=== PATIENT | male | born 1995 | race Caucasian/White ===

== ENCOUNTER 2017-03-28 23:59 | Observation (INO) | payer BC, OTHER ==
[~2017-03-28] VITALS: Ht 170.2 cm; Wt 62.3 kg
[~2017-03-28 23:59] MED LIST: AGM875T PO; ALBU8.5H4 IH; AMOX500C2 PO; CYCL10TA9 PO; NAPR500T PO; antibiotic
[2017-03-29] VITALS (12 sets, daily range): BP systolic 115–137; BP diastolic 59–80
[2017-03-29] MEDS ORDERED: LACTATED RINGERS 1,000 ML IV ONE (00:52)
[2017-03-29 01:20] LABS: BASOPHILS % (AUTO) 0 % (0-10); EOSINOPHILS # (AUTO) 0.1 10^3/uL (0.0-0.3); EOSINOPHILS % (AUTO) 1 % (0-10); LYMPHOCYTES # (AUTO) 1.7 X 10^3 (1.0-4.0); LYMPHOCYTES % (AUTO) 20 % (12-44); MEAN CORPUSCULAR HEMOGLOBIN 30 PG (25-34); MEAN CORPUSCULAR HGB CONC 34 G/DL (32-36); MEAN CORPUSCULAR VOLUME 89 FL (80-99); MONOCYTES # (AUTO) 0.8 X 10^3 (0.0-1.0); MONOCYTES % (AUTO) 9 % (0-12); NEUTROPHILS # (AUTO) 5.8 X 10^3 (1.8-7.8); NEUTROPHILS % (AUTO) 70 % (42-75); PLATELET COUNT 264 10^3/uL (130-400); RED BLOOD COUNT 4.71 10^6/uL (4.35-5.85); RED CELL DISTRIBUTION WIDTH 12.5 % (10.0-14.5); WHITE BLOOD COUNT 8.3 10^3/uL (4.3-11.0)
[2017-03-29] MEDS ORDERED: ONDANSETRON 4 MG/2 ML (SDV) Z0FRAN ONE (01:28)
[2017-03-29 01:39] LABS: ALANINE AMINOTRANSFERASE 27 U/L (0-55); ALBUMIN 4.3 G/DL (3.2-4.5); ALCOHOL < 10 MG/DL (<10); ANION GAP 10 MMOL/L (5-14); ASPARTATE AMINO TRANSFERASE 24 U/L (5-34); BILIRUBIN,TOTAL 0.4 MG/DL (0.1-1.0); BLOOD UREA NITROGEN 19 MG/DL (7-18); BUN/CREATININE RATIO 18; CALCIUM 9.1 MG/DL (8.5-10.1); CARBON DIOXIDE 26 MMOL/L (21-32); CHLORIDE 106 MMOL/L (98-107); CREATININE SERUM 1.06 MG/DL (0.60-1.30); GFR ESTIMATED > 60; GLUCOSE 99 MG/DL (70-105); MAGNESIUM 2.1 MG/DL (1.8-2.4); POTASSIUM 3.7 MMOL/L (3.6-5.0); SODIUM 142 MMOL/L (135-145); TOTAL PROTEIN 6.9 G/DL (6.4-8.2)
[2017-03-29] MEDS ORDERED: ONDANSETRON 4 MG/2 ML (SDV) Z0FRAN IVP ONE (02:00)
[2017-03-29] MEDS ORDERED: fentaNYL INJECTION 100 MCG/2 ML AMP IVP ONE (02:00)
[2017-03-29] MEDS ORDERED: PROMETHAZINE INJ 25 MG/ML (PHENERGAN) AMP ONE (02:08)
[2017-03-29] MEDS ORDERED: PROMETHAZINE INJ 25 MG/ML (PHENERGAN) AMP IVP ONE (02:15)
[2017-03-29 02:19] LABS: BILIRUBIN,URINE NEGATIVE (NEGATIVE); KETONES,URINE NEGATIVE (NEGATIVE); LEUKOCYTE ESTERASE ,URINE 1+ (NEGATIVE); NITRITE,URINE NEGATIVE (NEGATIVE); PH,URINE 6 (5-9); PROTEIN,URINE 2+ (NEGATIVE); UROBILINOGEN,URINE NORMAL (NORMAL)
[2017-03-29 02:27] LABS: SQUAMOUS EPITHELIAL CELL,UR RARE /HPF; WBC,URINE 0-2 /HPF
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
[2017-03-29] MEDS ORDERED: D5 1/2 NS W/KCL 20 MEQ/L 1,000 ML IV ONE (03:46)
[2017-03-29] MEDS ORDERED: PROMETHAZINE INJ 25 MG/ML (PHENERGAN) AMP IV PRN (05:00)
[2017-03-29] MEDS ORDERED: ONDANSETRON 4 MG/2 ML (SDV) Z0FRAN IV PRN (05:00)
[2017-03-29] MEDS ORDERED: KETOROLAC 30 MG/ML VIAL IV PRN (05:15)
[2017-03-29] MEDS ORDERED: CATHETER FLUSH 10 ML SYR IV PRN (05:15)
[2017-03-29] MEDS: CATHETER FLUSH 10 ML SYR IV SCH ×2 (06:50→13:49)
[2017-03-29] MEDS: D5 1/2 NS W/KCL 20 MEQ/L 1,000 ML IV SCH ×2 (06:51→13:47)
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
== END 2017-03-29 17:35 | disposition short-term general hospital (02) ==
LOC: EDUNIT# 23:59 → ER 03-29 00:01 → 4TH 03-29 02:22 → UNDOADMOB 03-29 02:22 → 4TH 03-29 03:00
PROVIDERS: ADMIT Surgery; ATTEND Surgery
DX: S06.6X0A Traumatic subarachnoid hemorrhage without loss of consciousness, initial encounter (principal); Y04.0XXA Assault by unarmed brawl or fight, initial encounter; Y92.29 Other specified public building as the place of occurrence of the external cause
CPT/HCPCS: 36415; 70450; 72125; 80053; 80306; 80320; 81000; 83735; 85025; 96361; 96374; 96375; G0378

== ENCOUNTER 2018-01-07 21:10 | Emergency (ER) | payer BC, OTHER ==
[~2018-01-07] VITALS: Ht 170.2 cm; Wt 60.8 kg
[~2018-01-07 21:10] MED LIST changes: +NAPR-1071 PO; -NAPR500T PO
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
--- OUTSIDE RECORDS SUMMARY | 2018-01-07 21:16 | XMS REPORT ---
Author [facility] Address [address] [place] [address] Care Team Providers Care Core Sticker Name Role Phone DAVIDSON BAILEY Unavailable PROBLEMS Type Condition ICD9-CM Code [id number] Code Onset Dates Condition Status SNOMED Code Problem Cannabis dependence F12.20 Active 13691008 ALLERGIES Unknown Allergies SOCIAL HISTORY No smoking Hx information available PLAN OF CARE Activity Details Follow Up 1 Week Reason: VITAL SIGNS MEDICATIONS Unknown Medications RESULTS No Results PROCEDURES Procedure Date Ordered Related Diagnosis Body Site Psychotherapy, patient &/family, 60 minutes, established patient Oct 18, 2016 IMMUNIZATIONS No Known Immunizations
--- OUTSIDE RECORDS SUMMARY | 2018-01-07 21:16 | XMS REPORT | Clinical Summary ---
Author Author [facility] Organization [facility] Address Unknown Phone Unavailable Care Team Providers Care Surgical Garment Inspector Name Role Phone Self, Referral PCP Unavailable Annie Rodrigez LENNOX Unavailable Source Comments Some departments are not documenting in the electronic medical record. If you do not see the information that you expected, contact Release of Information in the Health Information Management department at [phone] for further assistance in locating additional records.[facility] Allergies No Known Allergies Current Medications Prescription Sig. Disp. Refills Start End Date Status Date acyclovir (ZOVIRAX) 200 Take 200 mg by mouth five Active mg capsule times daily. azithromycin (ZITHROMAX) Take 4 Tabs by mouth 4 Tab 0 01/17/20 Active 500 mg tabletIndications: daily. 16 Penile lesion mupirocin (BACTROBAN) 2 % Apply to affected area 30 g 0 01/17/20 Active topical twice daily until healed. 16 ointmentIndications: Abscess of right leg Active Problems No known active problems Family History Medical History Relation Name Comments None Reported Father None Reported Mother Relation Name Status Comments Father Alive Mother Alive Social History Tobacco Use Types Packs/Day Years Used Date Current Every Day Smoker Tobacco Cessation: Ready to Quit: No; Counseling Given: Yes Sex Assigned at Date Recorded Not on file Last Filed Vital Signs Vital Sign Reading Time Taken Blood Pressure 120/85 01/17/2016 3:01 PM CDT Pulse 89 01/17/2016 3:01 PM CDT Temperature 36.6 C (97.9 F) 01/17/2016 3:01 PM CDT Respiratory Rate 16 01/17/2016 3:01 PM CDT Oxygen Saturation - - Inhaled Oxygen - - Concentration Weight 56.7 kg (125 lb) 01/17/2016 3:01 PM CDT Height 168.9 cm (5' 6.5") 01/17/2016 3:01 PM CDT Body Mass Index 19.87 01/17/2016 3:01 PM CDT Plan of Treatment Health Maintenance Due Date Last Done Comments PHYSICAL (COMPREHENSIVE) 2001 EXAM PERTUSSIS VACCINE 2005 TETANUS VACCINE 2011 INFLUENZA VACCINE 07/21/2018 HIV SCREENING Completed 01/17/2016 Results Not on filefrom Last 3 Months
--- OUTSIDE RECORDS SUMMARY | 2018-01-07 21:16 | XMS REPORT ---
Author Author DAVIDSON BAILEY [facility] Address [address] [place] [address] Care Team Providers Care Bag Adjuster Name Role Phone DAVIDSON BAILEY Unavailable PROBLEMS Type Condition ICD9-CM Code FBC12-EH Code Onset Dates Condition Status SNOMED Code Problem Cannabis dependence F12.20 Active [id number] ALLERGIES No Information SOCIAL HISTORY Never Assessed PLAN OF CARE Activity Details Follow Up 2 - 3 Days Reason: VITAL SIGNS MEDICATIONS Unknown Medications RESULTS No Results PROCEDURES Procedure Date Ordered Result Body Site Psychotherapy, patient &/family, 30 minutes, established patient Oct 17, 2016 IMMUNIZATIONS No Known Immunizations
--- OUTSIDE RECORDS SUMMARY | 2018-01-07 21:16 | XMS REPORT ---
Author Author DAVIDSON BAILEY [facility] Address [address] [place] [address] Care Team Providers Care Bone Drier Name Role Phone DAVIDSON BAILEY Unavailable PROBLEMS Type Condition ICD9-CM Code HCL34-JE Code Onset Dates Condition Status SNOMED Code Problem Cannabis dependence F12.20 Active [id number] ALLERGIES No Information SOCIAL HISTORY Never Assessed PLAN OF CARE Activity Details Follow Up Client was not rescheduled. File will remain open for 30 days Reason : VITAL SIGNS MEDICATIONS Unknown Medications RESULTS No Results PROCEDURES Procedure Date Ordered Result Body Site Psychotherapy, patient &/family, 30 minutes, established patient February 27, 2017 IMMUNIZATIONS No Known Immunizations
--- OUTSIDE RECORDS SUMMARY | 2018-01-07 21:16 | XMS REPORT ---
Author [facility] Address [address] [place] [address] Care Team Providers Care Data Entry Email Processor Name Role Phone DAVIDSON BAILEY Unavailable PROBLEMS Type Condition ICD9-CM Code FYU09-CA Code Onset Dates Condition Status SNOMED Code Problem Cannabis dependence F12.20 Active [id number] ALLERGIES No Information SOCIAL HISTORY Never Assessed PLAN OF CARE Activity Details Follow Up 5 days Reason: VITAL SIGNS MEDICATIONS Unknown Medications RESULTS No Results PROCEDURES Procedure Date Ordered Result Body Site Psychotherapy, patient &/family, 30 minutes, established patient February 22, 2017 IMMUNIZATIONS No Known Immunizations
[2018-01-07 21:22] LABS: BILIRUBIN,URINE NEGATIVE (NEGATIVE); CLARITY,URINE CLEAR; COLOR,URINE YELLOW; GLUCOSE, URINE (UA) NEGATIVE (NEGATIVE); KETONES,URINE NEGATIVE (NEGATIVE); LEUKOCYTE ESTERASE ,URINE 2+ (NEGATIVE); NITRITE,URINE NEGATIVE (NEGATIVE); PH,URINE 6 (5-9); PROTEIN,URINE NEGATIVE (NEGATIVE); UROBILINOGEN,URINE NORMAL (NORMAL)
--- NOTE | 2018-01-07 21:25 | ED Abdominal Pain ---
General Chief Complaint: Abdominal/GI Problems Stated Complaint: POSS KIDNEY STONE Source of Information: Patient Exam Limitations: No Limitations History of Present Illness Date Seen by Provider: Jan 07, 2018 Time Seen by Provider: 21:22 Initial Comments To ER per private vehicle with reports of left flank pain. The pain was noticed first yesterday morning about 6:30 AM. The pain has been intermittent and quite intense at times. He was seen at urgent care yesterday with urinalysis done and lab work. He was given an antibiotic but hasn't started that yet but states it is in his car. He states he was told that there was some blood in the urine however. No history of this or kidney stones. It does not hurt to urinate until he got here. He was asked to provide a urine sample upon arrival to ER and states that during that episode of urination he did have some pain. His flank pain is completely resolved at this time and just resolved in the waiting room prior to coming back to room 8. However just before this, pain was terrible he states. He has not noticed any fevers or chills. Timing/Duration: 1-2 Days Severity/Quality: Moderate Location: Flank Radiation: No Radiation Activities at Onset: None Modifying Factors: Improves With Vomiting Allergies and Home Medications Allergies Coded Allergies: No Known Drug Allergies (Unverified , 12/09/13) Home Medications Hydrocodone/Acetaminophen 1 Each Tablet, 1 EACH PO Q4H PRN for PAIN-SEVERE TO BREAKTHROUGH Prescribed by: CALLIE ROBERTSON on 01/07/18 8844 Patient Home Medication List Home Medication List Reviewed: Yes Review of Systems Constitutional: see HPI, No chills, No fever EENTM: No Symptoms Reported Respiratory: No Symptoms Reported Cardiovascular: No Symptoms Reported Gastrointestinal: See HPI Genitourinary: See HPI, Flank Pain Musculoskeletal: no symptoms reported Skin: no symptoms reported Psychiatric/Neurological: No Symptoms Reported Endocrine: No Symptoms Reported Past Lssrbxt-Jeigah-Bxorqw Hx Patient Social History Drug of Choice: marijuana Recent Foreign Travel: No Contact w/Someone Who Travel: No Recent Hopitalizations: No Immunizations Up To Date Tetanus Booster (TDap): Unknown Seasonal Allergies Seasonal Allergies: No Surgeries History of Surgeries: Yes (CYST REMOVED FROM EAR) Respiratory History of Respiratory Disorde: No Cardiovascular History of Cardiac Disorders: No Neurological History of Neurological Disord: No Reproductive System Hx Reproductive Disorders: No Sexually Transmitted Disease: No Gastrointestinal History of Gastrointestinal Di: No Musculoskeletal History of Musculoskeletal Dis: No Endocrine History of Endocrine Disorders: No Cancer History of Cancer: No Psychosocial History of Psychiatric Problem: No Integumentary History of Skin or Integumenta: No Blood Transfusions History of Blood Disorders: No Family Medical History Significant Family History: No Pertinent Family Hx Family Medial History: Physical Exam Vital Signs VS - Last 72 Hours, by Label 01/07/18 21:18 Temp 97.0 Pulse 78 Resp 18 B/P (MAP) 138/96 (110) Pulse Ox 96 O2 Delivery Room Air Capillary Refill : General Appearance: WD/WN, no apparent distress HEENT: PERRL/EOMI, normal ENT inspection Neck: non-tender, full range of motion Respiratory: no respiratory distress, no accessory muscle use Cardiovascular: regular rate, rhythm, no murmur Gastrointestinal: normal bowel sounds, non tender, soft Extremities: normal range of motion, non-tender, normal inspection Back: No CVA tenderness (R), No CVA tenderness (L) Neurologic/Psychiatric: alert, normal mood/affect, oriented x 3 Skin: normal color, warm/dry Exam Comments Pt appears sedated, speech and responses are slow though appropriate. Will order tox screen prior to rx for opiates. Progress/Results/Core Measures Results/Orders Lab Results Laboratory Tests Test 01/07/18 21:15 01/07/18 21:50 Range/Units Urine Color YELLOW Urine Clarity CLEAR Urine pH 6 5-9 Urine Specific [place] 1.020 1.016-1.022 Urine Protein NEGATIVE NEGATIVE Urine Glucose (UA) NEGATIVE NEGATIVE Urine Ketones NEGATIVE NEGATIVE Urine Nitrite NEGATIVE NEGATIVE Urine Bilirubin NEGATIVE NEGATIVE Urine Urobilinogen NORMAL NORMAL MG/DL Urine Leukocyte Esterase 2+ H NEGATIVE Urine RBC (Auto) 2+ H NEGATIVE Urine RBC 25-50 H /HPF Urine WBC 50-100 H /HPF Urine Crystals NONE /LPF Urine Bacteria TRACE /HPF Urine Casts NONE /LPF Urine Mucus NEGATIVE /LPF Urine Culture Indicated YES Urine Opiates Screen NEGATIVE NEGATIVE Urine Oxycodone Screen NEGATIVE NEGATIVE Urine Methadone Screen NEGATIVE NEGATIVE Urine Propoxyphene Screen NEGATIVE NEGATIVE Urine Barbiturates Screen NEGATIVE NEGATIVE Ur Tricyclic Antidepressants Screen NEGATIVE NEGATIVE Urine Phencyclidine Screen NEGATIVE NEGATIVE Urine Amphetamines Screen NEGATIVE NEGATIVE Urine Methamphetamines Screen NEGATIVE NEGATIVE Urine Benzodiazepines Screen NEGATIVE NEGATIVE Urine Cocaine Screen NEGATIVE NEGATIVE Urine Cannabinoids Screen POSITIVE H NEGATIVE White Blood Count 8.7 4.3-11.0 10^3/uL Red Blood Count 4.62 4.35-5.85 10^6/uL Hemoglobin 14.0 13.3-17.7 G/DL Hematocrit 42 40-54 % Mean Corpuscular Volume 91 80-99 FL Mean Corpuscular Hemoglobin 30 25-34 PG Mean Corpuscular Hemoglobin Concent 34 32-36 G/DL Red Cell Distribution Width 12.7 10.0-14.5 % Platelet Count 298 130-400 10^3/uL Mean Platelet Volume 9.2 7.4-10.4 FL Neutrophils (%) (Auto) 62 42-75 % Lymphocytes (%) (Auto) 28 12-44 % Monocytes (%) (Auto) 8 0-12 % Eosinophils (%) (Auto) 2 0-10 % Basophils (%) (Auto) 0 0-10 % Neutrophils # (Auto) 5.4 1.8-7.8 X 10^3 Lymphocytes # (Auto) 2.4 1.0-4.0 X 10^3 Monocytes # (Auto) 0.7 0.0-1.0 X 10^3 Eosinophils # (Auto) 0.2 0.0-0.3 10^3/uL Basophils # (Auto) 0.0 0.0-0.1 10^3/uL Sodium Level 138 135-145 MMOL/L Potassium Level 3.8 3.6-5.0 MMOL/L Chloride Level 105 98-107 MMOL/L Carbon Dioxide Level 24 21-32 MMOL/L Anion Gap 9 5-14 MMOL/L Blood Urea Nitrogen 28 H 7-18 MG/DL Creatinine 0.93 0.60-1.30 MG/DL Estimat Glomerular Filtration Rate > 60 BUN/Creatinine Ratio 30 Glucose Level 108 H 70-105 MG/DL Calcium Level 9.4 8.5-10.1 MG/DL My Orders Orders - CALLIE ROBERTSON APRN Cbc With Automated Diff (01/07/18 21:21) Basic Metabolic Panel (01/07/18 21:21) Saline Lock/Iv-Start (01/07/18 21:21) Ct Abd/Pelvis Wo(Kidney Stone) (01/07/18 21:21) Ceftriaxone Injection (Rocephin Injectio (01/07/18 21:45) Chlamydia Dna (01/07/18 21:33) Neis Dave Dna Urine Test (01/07/18 21:33) Drug Screen Stat (Urine) (01/07/18 22:06) Ns Iv 1000 Ml (Sodium Chloride 0.9%) (01/07/18 22:30) Rx-Hydrocodone/Apap 5-325 Mg (Rx-Vicodin (01/07/18 22:30) Medications Given in ED Current Medications Medications Dose Ordered Sig/Edmundo Route Start Time Stop Time Status Last Admin Dose Admin Ceftriaxone Sodium 1000 mg/ Sodium Chloride 100 ml @ 200 mls/hr ONCE ONCE IV 01/07/18 21:45 01/07/18 22:14 DC 01/07/18 22:01 200 MLS/HR Vital Signs/I&O Vital Sign - Last 12Hours 01/07/18 21:18 Temp 97.0 Pulse 78 Resp 18 B/P (MAP) 138/96 (110) Pulse Ox 96 O2 Delivery Room Air Diagnostic Imaging Diagonstic Imaging: CT Comments NAME: [facility] REC#: [id number] PT STATUS: REG ER : 1995 PHYSICIAN: CALLIE ROBERTSON APRN ADMIT DATE: 01/07/18/ER Draft Date of Exam:01/07/18 CT ABD/PELVIS WO(KIDNEY STONE) PROCEDURE: CT urinary tract, rule out kidney stone. TECHNIQUE: Multiple contiguous axial images were obtained through the abdomen and pelvis without the use of intravenous contrast. INDICATION: Left flank pain beginning yesterday morning COMPARISON: None FINDINGS: The lung bases are clear. The heart is normal in size. No focal hepatic lesions are seen. The spleen appears normal. The pancreas is unremarkable. The adrenal glands are normal. The right kidney appears normal without hydronephrosis or obstructing calculi. A punctate nonobstructing calculi is noted in the right kidney. There is a focal area of hypoattenuation in the posterior right kidney, which is not well-defined on this noncontrast study. This could represent a cyst. The left kidney demonstrates minimal hydroureter, with mild periureteral fat stranding. The distal ureter is difficult to see, however, there appears to be an obstructing 3 mm calculus near the left ureterovesicular junction. Moderate stool is seen throughout the colon. No evidence of small bowel obstruction is seen. The appendix appears normal. There is no significant free fluid or free air seen. No acute osseous abnormality is seen. IMPRESSION: 1. Obstructing 3 mm calculus at the left ureterovesicular junction, with mild left hydroureter. 2. Punctate nonobstructing calculus in the right kidney. Dictated on workstation # [id number] Dict: 01/07/[id number] Trans: 01/07/182157 [facility] [id number] Interpreted by: TYSON STEVENSON MD Electronically signed by: Departure Communication (Admissions) Progress Notes 2221 patient has remained pain-free during his ER stay so the stone may theoretically be in the bladder by this time. He states that he has antibiotics given to him by urgent care yesterday and his car so I will have him start those tomorrow. Ibuprofen for pain control in addition to hydrocodone. He was given a urine strainer here in the emergency room and instructed that if he wishes to know the composition of the stone he can take that to his primary care doctor who can have this stone was sent for analysis and recommend dietary or medication changes. Alternatively, he may simply pass the stone and not wish to pursue workup of stone analysis. Impression Impression: Primary Impression: Urinary tract infection Additional Impression: Left ureteral stone Disposition: 01 HOME, SELF-CARE Condition: Stable Departure-Patient Inst. Decision time for Depature: 21:53 Referrals: NO,LOCAL PHYSICIAN (PCP) Primary Care Physician LAUREN LOWERY MD Patient Instructions: Kidney Stones in Adults, Urinary Tract Infection, Adult ( DC) Add. Discharge Instructions: 1. Use the urine strainer every time you urinate and attempt to catch the stone which is typically an eyal colored pinhead sized hard material. If you collected this you can take this to your regular doctor who presented to the lab for a stone analysis to determine its composition. Based on the composition of the stone your doctor can recommend medication or dietary changes. Take the pain medication as needed and start the antibiotics tonight that she were given yesterday by urgent care. Ibuprofen works wonderfully for kidney stone pain so take 800 mg every 8 hours as needed for pain in addition to the prescribed pain medication. Scripts Hydrocodone/Acetaminophen ([place] 5-325 Tablet) 1 Each Tablet 1 EACH PO Q4H Y for PAIN-SEVERE TO BREAKTHROUGH, #14 TAB Prov: CALLIE ROBERTSON APRN 01/07/18 Work/School Note: Local Medical Staff Listing, Work Release Form Date Seen in the Emergency Department: Jan 07, 2018 Return to Work: Jan 09, 2018 CALLIE ROBERTSON APRN Jan 07, 2018 21:24
[2018-01-07 21:32] LABS: BACTERIA,URINE TRACE /HPF; RBC,URINE 25-50 /HPF; WBC,URINE 50-100 /HPF
[2018-01-07] MEDS ORDERED: cefTRIAXone INJECTION 1,000 MG in NS (IVPB) 100 ML IV ONE (21:45)
[2018-01-07 21:59] LABS: BASOPHILS % (AUTO) 0 % (0-10); EOSINOPHILS # (AUTO) 0.2 10^3/uL (0.0-0.3); EOSINOPHILS % (AUTO) 2 % (0-10); HEMATOCRIT 42 % (40-54); LYMPHOCYTES # (AUTO) 2.4 X 10^3 (1.0-4.0); LYMPHOCYTES % (AUTO) 28 % (12-44); MEAN CORPUSCULAR HEMOGLOBIN 30 PG (25-34); MEAN CORPUSCULAR HGB CONC 34 G/DL (32-36); MEAN CORPUSCULAR VOLUME 91 FL (80-99); MEAN PLATELET VOLUME 9.2 FL (7.4-10.4); MONOCYTES # (AUTO) 0.7 X 10^3 (0.0-1.0); MONOCYTES % (AUTO) 8 % (0-12); NEUTROPHILS # (AUTO) 5.4 X 10^3 (1.8-7.8); NEUTROPHILS % (AUTO) 62 % (42-75); PLATELET COUNT 298 10^3/uL (130-400); RED BLOOD COUNT 4.62 10^6/uL (4.35-5.85); RED CELL DISTRIBUTION WIDTH 12.7 % (10.0-14.5); WHITE BLOOD COUNT 8.7 10^3/uL (4.3-11.0)
--- NOTE | 2018-01-07 21:59 | Diagnostic Imaging Report ---
PROCEDURE: CT urinary tract, rule out kidney stone. TECHNIQUE: Multiple contiguous axial images were obtained through the abdomen and pelvis without the use of intravenous contrast. INDICATION: Left flank pain beginning yesterday morning COMPARISON: None FINDINGS: The lung bases are clear. The heart is normal in size. No focal hepatic lesions are seen. The spleen appears normal. The pancreas is unremarkable. The adrenal glands are normal. The right kidney appears normal without hydronephrosis or obstructing calculi. A punctate nonobstructing calculi is noted in the right kidney. There is a focal area of hypoattenuation in the posterior right kidney, which is not well-defined on this noncontrast study. This could represent a cyst. The left kidney demonstrates minimal hydroureter, with mild periureteral fat stranding. The distal ureter is difficult to see, however, there appears to be an obstructing 3 mm calculus near the left ureterovesicular junction. Moderate stool is seen throughout the colon. No evidence of small bowel obstruction is seen. The appendix appears normal. There is no significant free fluid or free air seen. No acute osseous abnormality is seen. IMPRESSION: 1. Obstructing 3 mm calculus at the left ureterovesicular junction, with mild left hydroureter. 2. Punctate nonobstructing calculus in the right kidney. Dictated by: Dictated on workstation # [id number]
[2018-01-07 22:16] LABS: BUN/CREATININE RATIO 30; CALCIUM 9.4 MG/DL (8.5-10.1); CARBON DIOXIDE 24 MMOL/L (21-32); CHLORIDE 105 MMOL/L (98-107); CREATININE SERUM 0.93 MG/DL (0.60-1.30); GFR ESTIMATED > 60; GLUCOSE 108 MG/DL (70-105); POTASSIUM 3.8 MMOL/L (3.6-5.0); SODIUM 138 MMOL/L (135-145)
[2018-01-07 22:23] LABS: AMPHETAMINE SCREEN, URINE NEGATIVE (NEGATIVE); BARBITURATE SCREEN URINE NEGATIVE (NEGATIVE); BENZODIAZEPINES SCREEN URINE NEGATIVE (NEGATIVE); CANNABINOID SCREEN, URINE POSITIVE (NEGATIVE); COCAINE SCREEN URINE NEGATIVE (NEGATIVE); METHADONE STAT NEGATIVE (NEGATIVE); METHAMPHETAMINE SCREEN URINE S NEGATIVE (NEGATIVE); OPIATE SCREEN URINE NEGATIVE (NEGATIVE); TRICYCLIC ANTIDEPRESSANTS SCRE NEGATIVE (NEGATIVE)
[2018-01-07 22:24] LABS: OXYCODONE STAT NEGATIVE (NEGATIVE); PROPOXYPHENE STAT NEGATIVE (NEGATIVE)
[2018-01-07] MEDS ORDERED: HYDR-757 PO (22:26)
[2018-01-07] MEDS ORDERED: RX-HYDROCODONE/APAP 5/325 MG #4 TAB PK PO PRN (22:30)
[2018-01-07] MEDS ORDERED: NS IV 1000 ML 1,000 ML IV SCH (22:30)
[2018-01-07 23:08] VITALS: BP 138/96
== END 2018-01-07 23:08 | disposition home or self-care (01) ==
LOC: EDUNIT# 21:10 → ER 21:12
DX: N39.0 Urinary tract infection, site not specified (principal); N20.1 Calculus of ureter
CPT/HCPCS: 36415; 74176; 80048; 80306; 81000; 85025; 87088; 87491; 87591; 96361; 96365